=== PATIENT | male | born 1935 | race Caucasian/White ===

== ENCOUNTER 2017-10-15 18:16 | Inpatient (IN) ==
[2017-10-15] MEDS ORDERED: Isovue-370 500 ML INFUS..BTL IV ONE (18:23)
[2017-10-15] MEDS ORDERED: 0.9 % Sodium Chloride 1,000 ML IVC ONE (18:23)
[2017-10-15] MEDS ORDERED: Piperacillin/Tazobactam 3.375 GM in 0.9 % Sodium Chloride Mini Bag 100 ML IVPB ONE (18:42)
--- NOTE | 2017-10-15 18:47 | Emergency Department Note ---
START Narrative - START START: 82 year old male who recently had prostate surgery per Dr. Brasher on Monday secondary to BPH and now has a chronic indwelling leger catheter and family at bedside states that he has beeen declining in mental status and weakness and appears to be febrile. He has decreased appetite. Concern is for sepsis secondary to UTI, pneumonia, or PE. Noemí will have a sepsis workup to start and HCT for altered mental status. I haev started IVF and broad spectrum ABX ( zosyn) and pre-emptive efforts. Noemí appears drowsy at bedside but is pelon to answer questions and follows commands and awaken to voice. GCS 14. Noemí will require admission to the hospital today. I will sign noemí out to Dr. Stephen for further followup on CT scan and labs. EKG: sinus tachycardia with rate of 107. NO STEMI. LAE q waves present. normla itervals. no old ekg. [id number]
[2017-10-15 19:26] LABS: Basophils % 0.2 %; Eosinophils # 0.1 K/mcL (0.0-0.6); Eosinophils % 1.6 %; Hematocrit 37.6 % (37.5-50.1); Hemoglobin 12.2 g/dL (12.9-16.9); Immature Granulocytes % 0.3 % (0-4); Lymphocytes # 0.5 K/mcL (0.6-4.6); Lymphocytes % 5.3 %; Mean Corpuscular HGB Conc 32.4 g/dL (31.6-35.5); Mean Corpuscular Hemoglobin 28.7 pg (28.0-33.3); Mean Corpuscular Volume 88.5 fL (83.0-100.0); Mean Platelet Volume 9.6 fL (9.4-12.4); Monocytes # 0.9 K/mcL (0.0-1.3); Monocytes % 10.7 %; Neutrophils # 7.2 K/mcL (1.6-8.9); Platelet Count 204 K/mcL (140-400); Red Blood Count 4.25 M/mcL (4.19-5.50); Red Cell Distribution Width 13.5 % (11.5-14.5); Segmented Neutrophils % 81.9 %
[2017-10-15 19:36] LABS: INR 1.1; Prothrombin Time 11.6 Seconds (9.4-12.1)
[2017-10-15 19:39] LABS: Activated Partial Thrombo Time 30.8 Seconds (26.0-36.0)
[2017-10-15 19:46] LABS: Albumin 3.3 g/dL (3.5-5.7); Bilirubin,Direct 0.1 mg/dL (0.0-0.2); Bilirubin,Indirect 0.2 mg/dL (0.0-1.2); Bilirubin,Total 0.3 mg/dL (0.3-1.0); Calcium 9.2 mg/dL (8.6-10.3); Globulin 3.3 g/dL (2.4-3.5); Magnesium 2.2 mg/dL (1.6-2.6); Phosphorous 3.9 mg/dL (2.7-4.5); Potassium 4.8 mEq/L (3.5-5.1); Total Protein 6.6 g/dL (6.4-8.9)
[2017-10-15 19:50] LABS: Bilirubin,Urine Negative (Negative); Blood,Urine Large (Negative); Clarity,Urine Cloudy (Clear); Color,Urine Yellow (Yellow); Glucose,Urine (UA) Normal (Normal); Ketones,Urine Negative (Negative); Leukocyte Esterase,Urine Trace (Negative); Nitrite,Urine Negative (Negative); Protein,Urine 100 mg/dL (Neg-Trace); Specific Gravity,Urine 1.017 (1.010-1.025); Urobilinogen,Urine Normal (Normal)
[2017-10-15 19:50] LABS: Troponin I 0.08 ng/mL (< 0.04)
[2017-10-15 19:52] LABS: Bacteria,Urine None Seen per hpf (None-Few); Hyaline Casts,Urine None Seen per lpf (None-Few); RBC,Urine TNTC per hpf (0-3); Squamous Epithelial Cell,Urine Many per lpf (None-Few)
[2017-10-15 20:09] LABS: VBG HCO3 22 mEq/L (21-27); VBG PCO2 40 mmHg (41-51); VBG PH 7.34 pH Units (7.32-7.42); VBG PO2 85 mmHg (25-50)
--- NOTE | 2017-10-15 20:54 | Emergency Department Note ---
Disposition Clinical Impression: Generalized weakness, Elevated troponin Chronic renal disease Qualifiers: Chronic kidney disease stage: unspecified stage Qualified Code(s): N18.9 - Chronic kidney disease, unspecified Pneumonia Qualifiers: Pneumonia type: aspiration pneumonia Aspiration pneumonia type: unspecified Laterality: bilateral Lung location: unspecified part of lung Qualified Code(s) : J69.0 - Pneumonitis due to inhalation of food and vomit Disposition: Admitted As Inpatient Condition: Fair Referrals: Abraham Desai DO [Primary Care Provider] - Forms: ED Satisfaction Letter Time of Disposition: 21:29 Altered Mental Status HPI - General Chief Complaint: ED Altered Mental Status Stated Complaint: AMS Time Seen by Provider: 10/15/17 18:21 Source: patient, family Limitations: altered mental status (somnolence) Nursing Notes Reviewed: Yes Vital Signs Reviewed: Yes - History of Present Illness HPI Narrative: This is an 82 year-old male with history of chronic lung disease, BPH 5 days s/ p laser ablation procedure by Dr. Brasher. He presents with AMS described as excessive somnolence, gradually worsening since the procedure, along with generalized weakness and poor appetite. PAtient reports "pain all over" but denies any focal pain complaints, incuding headache, chest pain, and abdominal pain. He has had an indwelling catheter since the procedure; UOP has been normal and has changed from blood-tinged to normal yellow. Patient has had no measured fevers. He reports cough and dyspnea, both of which sound chronic in nature and unchanged. MD complaint: altered mental status Onset (ago): day(s) Timing confirmed by: family member Consistency of Symptoms: getting worse Associated symptoms: Reports: cough, loss of appetite, malaise, shortness of breath, weakness (generalized). Denies: fever, headaches, nausea/vomiting, syncope - Related Data Home Medications Medication Instructions Recorded Confirmed Buspirone HCl [Buspar] 10 mg PO BID 10/10/17 10/10/17 Colchicine [Colcrys] 0.6 mg PO DAILY 10/10/17 10/10/17 Donepezil [Aricept] 5 mg PO HS 10/10/17 10/10/17 Ipratropium [place] 2 spr NS DAILY 10/10/17 10/10/17 Omeprazole [PriLOSEC] 20 mg PO DAILY 10/10/17 10/10/17 Theophylline Anhydrous [Rodrigo-24] 400 mg PO DAILY 10/10/17 10/10/17 Trazodone HCl 50 mg PO HS 10/10/17 10/10/17 Previous Rx's Medication Instructions Recorded HYDROcodone/Acet 5/325 mg [[place] 1 tab PO Q4HR PRN 5 Days #10 tablet 10/11/17 5-325 mg] Allergies Allergy/AdvReac Type Severity Reaction Status Date / Time theophylline AdvReac See Verified 10/10/17 08:39 Comments All systems ED: reviewed and negative except as stated. Constitutional: Reports: weakness (generalized). Denies: fever Cardiovascular: Denies: chest pain Respiratory: Reports: cough (chronic, unchanged), dyspnea (chronic, unchanged) Gastrointestinal: Denies: abdominal pain Neurological: Denies: headache Past Medical History - Past Medical History Medical history: Reports: GERD, hypertension, renal disease Psychiatric history: Reports: anxiety - Social History Smoking Status: Never smoker Smokeless Tobacco Status: No Alcohol use: Reports: none Drug use: Reports: none Physical Exam - General Limitations: altered mental status (somnolent; anwers simple questions appropriately) General appearance: alert, in no apparent distress - Head Head exam: atraumatic, normocephalic - Eye Eye exam: Present: normal appearance - ENT ENT exam: normal exam - Neck Neck exam: Present: normal inspection. Absent: meningismus - Respiratory Respiratory exam: Present: normal lung sounds bilaterally. Absent: respiratory distress - Cardiovascular Cardiovascular exam: Present: regular rate, normal rhythm, normal heart sounds - Abdominal Exam Abdominal exam: Present: soft, Non-Tender. Absent: distention, guarding, rebound, rigidity - Extremities Exam Extremities exam: Present: normal inspection. Absent: tenderness, pedal edema - Neurological Exam Neurological exam: Present: other (somnolent, Ox2) - Skin Skin exam: Present: warm, dry, intact Course - Reevaluation(s) Reevaluation #1: Patient remains stable. Updated patient and family on test results, plans for admission. Time: 21:31 - Consultations Consultation #1: Reviewed case with Dr. Joya, and patient accepted for admission. Time: 21:39 Vital Signs Temperature 98.3 F 10/15/17 18:17 Pulse Rate 122 10/15/17 18:17 Respiratory Rate 16 10/15/17 18:17 Blood Pressure 103/67 10/15/17 18:17 O2 Sat by Pulse Oximetry 92 10/15/17 18:17 Temperature 98.3 F 10/15/17 18:22 Pulse Rate 93 10/15/17 20:58 Respiratory Rate 18 10/15/17 20:58 Blood Pressure 112/67 10/15/17 20:58 O2 Sat by Pulse Oximetry 93 10/15/17 20:58 Oxygen Delivery Oxygen Delivery Room Air Altered Mental Status - Lab Data Lab results reviewed: Yes I reviewed the patient's lab results. Lab results narrative: UA dirty, as expected with indwelling catheter; UA not highly suggestive of infection. Result diagrams: 10/15/17 18:23 10/15/17 18:23 Lab Results 10/15/17 10/15/17 10/15/17 Range/Units 18:23 18:23 18:23 WBC 8.7 (4.3-11.1) K/mcL RBC 4.25 (4.19-5.50) M/mcL Hgb 12.2 L (12.9-16.9) g/dL Hct 37.6 (37.5-50.1) % MCV 88.5 (83.0-100.0) fL MCH 28.7 (28.0-33.3) pg MCHC 32.4 (31.6-35.5) g/dL RDW 13.5 (11.5-14.5) % Plt Count 204 (140-400) K/mcL MPV 9.6 (9.4-12.4) fL Immature Gran % 0.3 (0-4) % Seg Neutrophils % 81.9 % Lymphocytes % 5.3 % Monocytes % 10.7 % Eosinophils % 1.6 % Basophils % 0.2 % Neutrophils # 7.2 (1.6-8.9) K/mcL Lymphocytes # 0.5 L (0.6-4.6) K/mcL Monocytes # 0.9 (0.0-1.3) K/mcL Eosinophils # 0.1 (0.0-0.6) K/mcL Basophils # 0.0 (0.0-0.2) K/mcL PT 11.6 (9.4-12.1) Seconds INR 1.1 APTT 30.8 (26.0-36.0) Seconds VBG pH (7.32-7.42) pH Units VBG pCO2 (41-51) mmHg VBG pO2 (25-50) mmHg VBG HCO3 (21-27) mEq/L Sodium 140 (136-145) mEq/L Potassium 4.8 (3.5-5.1) mEq/L Chloride 105 (98-107) mEq/L Carbon Dioxide 24 (23-29) mEq/L BUN 46 H (8-23) mg/dL Creatinine 2.71 H (0.70-1.30) mg/dL Est GFR ( Amer) 27 L (> 60) Est GFR (Non-Af Amer) 23 L (> 60) BUN/Creatinine Ratio 17 (6-26) Glucose 121 H (70-105) mg/dL Calculated Osmolality 303 H (280-300) Lactic Acid (0.5-2.2) mmol/L Calcium 9.2 (8.6-10.3) mg/dL Phosphorus 3.9 (2.7-4.5) mg/dL Magnesium 2.2 (1.6-2.6) mg/dL Total Bilirubin 0.3 (0.3-1.0) mg/dL Direct Bilirubin 0.1 (0.0-0.2) mg/dL Indirect Bilirubin 0.2 (0.0-1.2) mg/dL AST 11 L (13-39) Units/L ALT 9 (7-52) Units/L Alkaline Phosphatase 70 (34-104) Units/L Troponin I 0.08 H* (< 0.04) ng/mL B-Natriuretic Peptide (Less than 100) pg/mL Serum Total Protein 6.6 (6.4-8.9) g/dL Albumin 3.3 L (3.5-5.7) g/dL Globulin 3.3 (2.4-3.5) g/dL Albumin/Globulin Ratio 1.0 L (1.1-2.2) Lipase 18 (11-82) Units/L Urine Color (Yellow) Urine Clarity (Clear) Urine pH (5.0-8.0) pH Units Ur Specific [place] (1.010-1.025) Urine Protein (Neg-Trace) mg/dL Urine Glucose (UA) (Normal) mg/dL Urine Ketones (Negative) mg/dL Urine Blood (Negative) Urine Nitrite (Negative) Urine Bilirubin (Negative) Urine Urobilinogen (Normal) mg/dL Ur Leukocyte Esterase (Negative) Urine Microscopic RBC (0-3) per hpf Urine Microscopic WBC (0-3) per hpf Ur Squamous Epith Cells (None-Few) per lpf Urine Bacteria (None-Few) per hpf Hyaline Casts (None-Few) per lpf Ur Culture Indicated? (NO) 10/15/17 10/15/17 10/15/17 Range/Units 18:23 19:00 19:27 WBC (4.3-11.1) K/mcL RBC (4.19-5.50) M/mcL Hgb (12.9-16.9) g/dL Hct (37.5-50.1) % MCV (83.0-100.0) fL MCH (28.0-33.3) pg MCHC (31.6-35.5) g/dL RDW (11.5-14.5) % Plt Count (140-400) K/mcL MPV (9.4-12.4) fL Immature Gran % (0-4) % Seg Neutrophils % % Lymphocytes % % Monocytes % % Eosinophils % % Basophils % % Neutrophils # (1.6-8.9) K/mcL Lymphocytes # (0.6-4.6) K/mcL Monocytes # (0.0-1.3) K/mcL Eosinophils # (0.0-0.6) K/mcL Basophils # (0.0-0.2) K/mcL PT (9.4-12.1) Seconds INR APTT (26.0-36.0) Seconds VBG pH (7.32-7.42) pH Units VBG pCO2 (41-51) mmHg VBG pO2 (25-50) mmHg VBG HCO3 (21-27) mEq/L Sodium (136-145) mEq/L Potassium (3.5-5.1) mEq/L Chloride (98-107) mEq/L Carbon Dioxide (23-29) mEq/L BUN (8-23) mg/dL Creatinine (0.70-1.30) mg/dL Est GFR ( Amer) (> 60) Est GFR (Non-Af Amer) (> 60) BUN/Creatinine Ratio (6-26) Glucose (70-105) mg/dL Calculated Osmolality (280-300) Lactic Acid 1.2 (0.5-2.2) mmol/L Calcium (8.6-10.3) mg/dL Phosphorus (2.7-4.5) mg/dL Magnesium (1.6-2.6) mg/dL Total Bilirubin (0.3-1.0) mg/dL Direct Bilirubin (0.0-0.2) mg/dL Indirect Bilirubin (0.0-1.2) mg/dL AST (13-39) Units/L ALT (7-52) Units/L Alkaline Phosphatase (34-104) Units/L Troponin I (< 0.04) ng/mL B-Natriuretic Peptide 73 (Less than 100) pg/mL Serum Total Protein (6.4-8.9) g/dL Albumin (3.5-5.7) g/dL Globulin (2.4-3.5) g/dL Albumin/Globulin Ratio (1.1-2.2) Lipase (11-82) Units/L Urine Color Yellow (Yellow) Urine Clarity Cloudy A (Clear) Urine pH 6.0 (5.0-8.0) pH Units Ur Specific [place] 1.017 (1.010-1.025) Urine Protein 100 H (Neg-Trace) mg/dL Urine Glucose (UA) Normal (Normal) mg/dL Urine Ketones Negative (Negative) mg/dL Urine Blood Large H (Negative) Urine Nitrite Negative (Negative) Urine Bilirubin Negative (Negative) Urine Urobilinogen Normal (Normal) mg/dL Ur Leukocyte Esterase Trace H (Negative) Urine Microscopic RBC TNTC H (0-3) per hpf Urine Microscopic WBC 5-15 H (0-3) per hpf Ur Squamous Epith Cells Many H (None-Few) per lpf Urine Bacteria None Seen (None-Few) per hpf Hyaline Casts None Seen (None-Few) per lpf Ur Culture Indicated? NO. A (NO) 10/15/17 Range/Units 20:05 WBC (4.3-11.1) K/mcL RBC (4.19-5.50) M/mcL Hgb (12.9-16.9) g/dL Hct (37.5-50.1) % MCV (83.0-100.0) fL MCH (28.0-33.3) pg MCHC (31.6-35.5) g/dL RDW (11.5-14.5) % Plt Count (140-400) K/mcL MPV (9.4-12.4) fL Immature Gran % (0-4) % Seg Neutrophils % % Lymphocytes % % Monocytes % % Eosinophils % % Basophils % % Neutrophils # (1.6-8.9) K/mcL Lymphocytes # (0.6-4.6) K/mcL Monocytes # (0.0-1.3) K/mcL Eosinophils # (0.0-0.6) K/mcL Basophils # (0.0-0.2) K/mcL PT (9.4-12.1) Seconds INR APTT (26.0-36.0) Seconds VBG pH 7.34 (7.32-7.42) pH Units VBG pCO2 40 L (41-51) mmHg VBG pO2 85 H (25-50) mmHg VBG HCO3 22 (21-27) mEq/L Sodium (136-145) mEq/L Potassium (3.5-5.1) mEq/L Chloride (98-107) mEq/L Carbon Dioxide (23-29) mEq/L BUN (8-23) mg/dL Creatinine (0.70-1.30) mg/dL Est GFR ( Amer) (> 60) Est GFR (Non-Af Amer) (> 60) BUN/Creatinine Ratio (6-26) Glucose (70-105) mg/dL Calculated Osmolality (280-300) Lactic Acid (0.5-2.2) mmol/L Calcium (8.6-10.3) mg/dL Phosphorus (2.7-4.5) mg/dL Magnesium (1.6-2.6) mg/dL Total Bilirubin (0.3-1.0) mg/dL Direct Bilirubin (0.0-0.2) mg/dL Indirect Bilirubin (0.0-1.2) mg/dL AST (13-39) Units/L ALT (7-52) Units/L Alkaline Phosphatase (34-104) Units/L Troponin I (< 0.04) ng/mL B-Natriuretic Peptide (Less than 100) pg/mL Serum Total Protein (6.4-8.9) g/dL Albumin (3.5-5.7) g/dL Globulin (2.4-3.5) g/dL Albumin/Globulin Ratio (1.1-2.2) Lipase (11-82) Units/L Urine Color (Yellow) Urine Clarity (Clear) Urine pH (5.0-8.0) pH Units Ur Specific [place] (1.010-1.025) Urine Protein (Neg-Trace) mg/dL Urine Glucose (UA) (Normal) mg/dL Urine Ketones (Negative) mg/dL Urine Blood (Negative) Urine Nitrite (Negative) Urine Bilirubin (Negative) Urine Urobilinogen (Normal) mg/dL Ur Leukocyte Esterase (Negative) Urine Microscopic RBC (0-3) per hpf Urine Microscopic WBC (0-3) per hpf Ur Squamous Epith Cells (None-Few) per lpf Urine Bacteria (None-Few) per hpf Hyaline Casts (None-Few) per lpf Ur Culture Indicated? (NO) - Radiology Data Radiology results reviewed: Yes I reviewed the patient's radiology results. CT/CT head/brain wo con IMPRESSION: No acute intracranial abnormality. CT/CT chest wo con IMPRESSION: 1. Multifocal pneumonia in the bilateral lower lungs. Aspiration is likely given the presence of mucus plugging in the bilateral lower lobe bronchi, and likely chronic atelectasis/collapse of the left lower lobe. 2. No acute abnormality in the abdomen/pelvis. 3. Prostatomegaly, with interval Richter catheter placement and bladder decompression. CT/CT abd pelvis wo no iv no oral IMPRESSION: 1. Multifocal pneumonia in the bilateral lower lungs. Aspiration is likely given the presence of mucus plugging in the bilateral lower lobe bronchi, and likely chronic atelectasis/collapse of the left lower lobe. 2. No acute abnormality in the abdomen/pelvis. 3. Prostatomegaly, with interval Richter catheter placement and bladder decompression. - EKG Data EKG attestation: Yes I reviewed and interpreted this EKG. EKG results narrative: Sinus tach EKG shows normal: axis Rate: tachycardia When compared to previous EKG there are: no significant changes Interpretation: no acute changes TPA Checklist - LKW: 3-4.5 hrs Add. Warnings/Precautions Patient/family understanding: The patient/family members have been counseled and understood the risk, benefit , and alternatives of treatment.
[2017-10-15] MEDS ORDERED: Clindamycin 900 MG/50 ML 900 MG/50 ML IV.SOLN IVPB ONE (21:28)
--- NOTE | 2017-10-15 21:56 | Internal Med History&Physical ---
Date of Encounter: 10/15/17 Time of Encounter: 21:56 Internal Medicine - H&P: HPI Chief complaint: "not acting normal" Admitted From: Home Plans for Post Hospital Care: Home History of present illness: Mr. Smith is a 82 year old male w/ pmh of CKD4, gout, htn, dementia, s/p prostatactomy 5 days ago with leger cath presents after family witnessed patient not acting normal. Patient is seen bedside with son and daughter in law. Family is unable to describe how he was acting but that he was just not normal. Patient states that he's not in any pain, does not feel confused. He denies chest pain, shortness of breath, edema, recent trauma, fever, chills. Son has not had goals of care conversation with patient. claims that she is PoA and that she has paperwork and will bring paperwork in tomorrow. Past Med Surg Social Fam HX - Past Medical History Medical history: GERD, hypertension, renal disease Psychiatric history: anxiety - Past Surgical History Additional surgical history: prostate surgery. lung surgery - Social History Smoking Status: Never smoker Smokeless Tobacco Status: No Alcohol use: none Drug use: none Internal Medicine - H&P: Meds Buspirone HCl [Buspar] 10 mg PO BID 10/10/17 [History] Colchicine [Colcrys] 0.6 mg PO DAILY 10/10/17 [History] Donepezil [Aricept] 5 mg PO HS 10/10/17 [History] Ipratropium [place] 2 spr NS DAILY 10/10/17 [History] Omeprazole [PriLOSEC] 20 mg PO DAILY 10/10/17 [History] Theophylline Anhydrous [Rodrigo-24] 400 mg PO DAILY 10/10/17 [History] Trazodone HCl 50 mg PO HS 10/10/17 [History] HYDROcodone/Acet 5/325 mg [[place] 5-325 mg] 1 tab PO Q4HR PRN 5 Days #10 tablet 10/11/17 [Rx] 3 Allergy/AdvReac Type Severity Reaction Status Date / Time theophylline AdvReac See Verified 10/10/17 08:39 Comments ROS unobtainable: due to mental status All Systems PM: A 10-system review of systems was performed and is negative for pertinent findings except as documented above in the HPI. - Constitutional Vitals: Temp Pulse Resp BP Pulse Ox 98.3 F 93 18 112/67 93 10/15/17 18:22 10/15/17 20:58 10/15/17 20:58 10/15/17 20:58 10/15/17 20:58 General appearance: Present: cachectic, cooperative, A&O X 1, underweight - Head Head exam: Present: atraumatic, normocephalic - Eye Eye exam: Present: PERRL, conjuntiva pink, sclera anicteric Pupils: Present: PERRL - Neck Neck exam general surgery: Present: supple, trachea midline. Absent: lymphadenopathy - Respiratory Respiratory exam: Present: CTAB. Absent: accessory muscle use, rales, rhonchi, wheezes - Cardiovascular Cardiovascular exam: Present: RRR, +S1, +S2. Absent: diastolic murmur, gallop, rubs, systolic murmur - GI/Abdominal GI/Abdominal exam: Present: normal bowel sounds, soft, no peritoneal signs. Absent: distended, firm, guarding, hepatomegaly, rebound, rigid, tenderness - Extremities Exam Extremities exam: Present: warm, radial pulses palpable and symmetrical. Absent : calf tenderness, cyanotic, pedal edema - Neurological Exam Neurological exam: Present: alert, no focal deficits. Absent: pronater drift, facial droop, speech deficit - Skin Skin exam: Present: dry, intact Internal Med - H&P Results - Labs CBC & Chem 7: 10/15/17 18:23 10/15/17 18:23 Labs: Short CBC 10/15/17 Range/Units 18:23 WBC 8.7 (4.3-11.1) K/mcL Hgb 12.2 L (12.9-16.9) g/dL Hct 37.6 (37.5-50.1) % Plt Count 204 (140-400) K/mcL Neutrophils # 7.2 (1.6-8.9) K/mcL BMP 10/15/17 18:23 Sodium 140 Potassium 4.8 Chloride 105 Carbon Dioxide 24 BUN 46 H Creatinine 2.71 H Glucose 121 H Calcium 9.2 Cardiac Enzymes 10/15/17 Range/Units 18:23 Troponin I 0.08 H* (< 0.04) ng/mL Liver Function 10/15/17 Range/Units 18:23 Total Bilirubin 0.3 (0.3-1.0) mg/dL Direct Bilirubin 0.1 (0.0-0.2) mg/dL AST 11 L (13-39) Units/L ALT 9 (7-52) Units/L Alkaline Phosphatase 70 (34-104) Units/L Albumin 3.3 L (3.5-5.7) g/dL Urine 10/15/17 Range/Units 19:27 Urine Color Yellow (Yellow) Urine Clarity Cloudy A (Clear) Urine pH 6.0 (5.0-8.0) pH Units Ur Specific [place] 1.017 (1.010-1.025) Urine Protein 100 H (Neg-Trace) mg/dL Urine Glucose (UA) Normal (Normal) mg/dL - ABG Interpretation ABG results: 10/15/17 20:05 VBG pH 7.34 VBG pCO2 40 L VBG pO2 85 H VBG HCO3 22 - Impressions ITS Impressions Abdomen/Pelvis CT 10/15/17 18:23 IMPRESSION: 1. Multifocal pneumonia in the bilateral lower lungs. Aspiration is likely given the presence of mucus plugging in the bilateral lower lobe bronchi, and likely chronic atelectasis/collapse of the left lower lobe. 2. No acute abnormality in the abdomen/pelvis. 3. Prostatomegaly, with interval Leger catheter placement and bladder decompression. D/ / 10/15/2017 21:19:35 Luigi Nagy MD / alberto Interpreting Provider: Luigi Nagy MD Chest CT 10/15/17 18:23 IMPRESSION: 1. Multifocal pneumonia in the bilateral lower lungs. Aspiration is likely given the presence of mucus plugging in the bilateral lower lobe bronchi, and likely chronic atelectasis/collapse of the left lower lobe. 2. No acute abnormality in the abdomen/pelvis. 3. Prostatomegaly, with interval Leger catheter placement and bladder decompression. D/ / 10/15/2017 21:19:35 Luigi Nagy MD / alberto Interpreting Provider: Luigi Nagy MD Head CT 10/15/17 18:42 IMPRESSION: No acute intracranial abnormality. D/ / Ricco Church MD / Ricco Church MD Interpreting Provider: Ricco Church MD - Assessment and plan (1) Not oriented to time Current Visit: Yes Status: Acute Assessment and plan: Patient was admitted for PNA, UTI and r/o PE. Patient's A+Ox1 most likely due to post surgery prescription of norco usage vs dehydration vs dementia vs less likely due to PNA vs possible UTI vs r/o PE. Patient received prescription for norco on monday, and had taken more frequent today due to general pain today. Will hold mental altering medications. Will gently rehydrate. Will continue abx for PNA. less likely surgically related due to time frame. No WBC and afebrile. no symptoms of PNA. CT ,chest read as multifocal pneumonia in bilateral lower lungs, aspiration likely. U/A was negative for nitrite and trace Leuks with many squamous epithelial cells. Will hold off on treating for UTI currently. will need leger cath management. ED had PE on differential, no PE workup was performed in the ED. Patient was tachycardic on admission but currently in SR. WELL's criteria is 1.5 for recent surgery, patient is low risk. - continue IVF, encourage PO fluids - hold norco - empirically treat for aspiration pneumonia with ampicillin/sulbactam (2) CKD (chronic kidney disease) Current Visit: Yes Status: Acute Assessment and plan: known hx of CKD3. Cr on admission 2.71, baseline ~2.5. - Renal diet - follow Cr. Qualifiers: Qualified Code(s): N18.3 - Chronic kidney disease, stage 3 (moderate) (3) Status post prostatectomy Current Visit: Yes Status: Acute Assessment and plan: Procedure performed last monday. Consider contacting Urology (4) Pneumonia Current Visit: Yes Status: Acute Assessment and plan: see above Qualifiers: Pneumonia type: aspiration pneumonia Aspiration pneumonia type: unspecified Laterality: bilateral Lung location: unspecified part of lung Qualified Code(s): J69.0 - Pneumonitis due to inhalation of food and vomit - Time Spent With Patient Total time spent is greater than 50% in coordination of care (as documented) at patient's floor/unit and/or counseling patient:
[2017-10-15] MEDS ORDERED: Naloxone 0.4 MG/ML INJ IVP PRN (22:28)
--- NOTE | 2017-10-15 22:40 | Event Note ---
Date of Encounter: 10/16/17 Time of Encounter: 22:28 Patient was seen and examined. I agree with the H&P as written by the Resident Physician. Briefly, patient is 82 yo m with recent BPH laser ablation 10/[address] Brasher, HTN, CKD here with AMS/weakness/excessive somnolence since the procedure. Has decreased appetite. In the ED, hemodynamcially stable but initially tachycardic. CT head unremarkable. CT chest showed multifocal pneumonia in the bilateral lower lungs with mucus plugging the bilateral lower lobe rhonchi. Patient stats in low 90s and put on supplemental O2. Give abx and IVF in the ED. labs showed CKD. Tops .08. No leukocytosis. EKG with no ischemic findings Lethargic patient RRR. S1, S2, no m/r/g Dimished with rhonchi at bases abdomen soft, NT, ND, +BS No edema. 2+ DP Nonfocal Admit for encephalopathy/aspiration pneumonia Treat aspiration pneumonia likely s/p anesthesia Start Unasyn check sputum/urine strep and legionella IV fluids Incentive spirometry c/s pulm for mucus plugs Trend cardiac enzymes DVT ppx
[2017-10-15] MEDS ORDERED: Ampicillin/Sulbactam 1,500 MG in 0.9 % Sodium Chloride Mini Bag 100 ML IVPB SCH (23:00)
[2017-10-15] MEDS ORDERED: 0.9 % Sodium Chloride 1,000 ML ONE (23:20)
[2017-10-15] MEDS: 0.9 % Sodium Chloride 1,000 ML IVC SCH (23:50)
[2017-10-16] MEDS: *HR* Heparin 5,000 UNIT/ML VIAL SQ SCH ×3 (06:08→21:13)
[2017-10-16 07:20] LABS: Basophils % 0.4 %; Eosinophils # 0.2 K/mcL (0.0-0.6); Eosinophils % 2.4 %; Hematocrit 32.9 % (37.5-50.1); Hemoglobin 10.9 g/dL (12.9-16.9); Immature Granulocytes % 0.4 % (0-4); Lymphocytes # 0.8 K/mcL (0.6-4.6); Lymphocytes % 10.8 %; Mean Corpuscular HGB Conc 33.1 g/dL (31.6-35.5); Mean Corpuscular Hemoglobin 29.8 pg (28.0-33.3); Mean Corpuscular Volume 89.9 fL (83.0-100.0); Mean Platelet Volume 9.5 fL (9.4-12.4); Monocytes # 0.9 K/mcL (0.0-1.3); Neutrophils # 5.5 K/mcL (1.6-8.9); Platelet Count 184 K/mcL (140-400); Red Blood Count 3.66 M/mcL (4.19-5.50); Red Cell Distribution Width 13.4 % (11.5-14.5)
[2017-10-16 07:41] LABS: Calcium 8.4 mg/dL (8.6-10.3); Potassium 4.7 mEq/L (3.5-5.1)
[2017-10-16] MEDS: Colchicine 0.6 MG TABLET PO SCH (10:08)
--- NOTE | 2017-10-16 10:24 | Internal Med Progress Note ---
Date of Encounter: 10/16/17 Time of Encounter: 10:22 - Assessment and plan (1) Metabolic encephalopathy Current Visit: Yes Status: Acute Assessment and plan: Patient was presented with metabolic encephalopathy from home. Possible potential etiologies are urinary tract infection as well as a developing pneumonia. He is not hypoxic at this point and urine cultures and blood cultures are pending at this time. He is on empiric Unasyn. He does have acute on chronic renal failure which could be contributory to his metabolic encephalopathy and a third possibility etiology. Today he looks a little bit better and I will closely monitor him for mental status loom changer the next several hours. (2) Troponin level elevated Current Visit: Yes Status: Acute Assessment and plan: Patient does not have any chest pain and this point. His troponins are mildly elevated at 0.08 and 0.09 respectively. He does not have any shortness of breath and the daughter is not aware of any heart failure diagnoses that he has had in the past. I did an EKG and does not show any acute ST elevation or depression. I will continue to place him on telemetry which by the way has not shown any evidence of ischemia. Hence the most likely elevation of his troponin could be related to his acute on chronic renal failure . I do not believe I would get cardiology consultation at this point however I will check an echo just to look at his baseline heart function and go from there. He appears very comfortable and denies any chest pain whatsoever at this point (3) Pneumonia Current Visit: Yes Status: Acute Assessment and plan: We are ruling out an aspiration versus a healthcare acquired pneumonia at this point. Patient did have some mucous plugging and would more benefit from an incentive spirometry at this point. He is not hypoxic and maintaining saturations of 93% on room air. He looks very comfortable and is not short of breath at this point. I have asked the nurses to check a bedside swallowing evaluation and if there is a concern we will do a full speech and swallow evaluation. Regardless I will continue Unasyn until cultures are resulted just for completion sake. I will also encourage incentive spirometry at the bedside at least once every hour Qualifiers: Pneumonia type: aspiration pneumonia Aspiration pneumonia type: unspecified Laterality: bilateral Lung location: unspecified part of lung Qualified Code(s): J69.0 - Pneumonitis due to inhalation of food and vomit (4) CKD (chronic kidney disease) Current Visit: Yes Status: Acute Assessment and plan: Acute and chronic renal failure with a baseline stage III chronic kidney disease. At this point I would give him gentle hydration for another 24 hours and then stop the IV fluids because I do not want him to get overloaded. His CK D could also have been worsened because of his underlying benign prostatic hypertrophy for which he recently had a prostate surgery. His urine in the Richter bag as well as the tubing looks very clear I have consulted urology for follow-up will be in to see the patient today. A new Richter catheter inside and await urine cultures as well... Qualifiers: Qualified Code(s): N18.3 - Chronic kidney disease, stage 3 (moderate) (5) Status post prostatectomy Current Visit: Yes Status: Acute Assessment and plan: Procedure performed last monday. Consult placed to neurology for postoperative care at this point. - Time Spent With Patient Total time spent is greater than 50% in coordination of care (as documented) at patient's floor/unit and/or counseling patient: Greater than 35 minutes - Subjective Interval history: Patient denies any new shortness of breath, chest pain. Patient's family at the bedside (daughter ) and provides most of the history. Patient reasonably answers questions as well. He states that here she feels better as compared to yesterday - Constitutional Vitals: Temp Pulse Resp BP Pulse Ox 98.9 F 84 18 122/77 94 10/16/17 06:55 10/16/17 06:55 10/16/17 06:55 10/16/17 06:55 10/16/17 06:55 General appearance: Present: cachectic, cooperative, A&O X 1, underweight Exam: GENERAL: Alert, moderate distress, cooperative, a and O 1 EYES: PERRLA, EOMI EARS: External ears normal, canals clear LUNGS: Lungs decreased breath sounds at the bases, impaired diaphragmatic excursion CARDIAC: Normal S1 and S2; no rubs, murmurs, or gallops ABDOMEN: Abdomen soft, non-tender, BS normal, No masses or organomegaly PULSES: 2+ radial, 2+ carotid Rest of the exam is non contributory Internal Medicine: Result - Labs CBC & Chem 7: 10/16/17 07:04 10/16/17 07:04 Labs: Short CBC 10/16/17 Range/Units 07:04 WBC 7.4 (4.3-11.1) K/mcL Hgb 10.9 L (12.9-16.9) g/dL Hct 32.9 L (37.5-50.1) % Plt Count 184 (140-400) K/mcL Neutrophils # 5.5 (1.6-8.9) K/mcL BMP 10/16/17 07:04 Sodium 141 Potassium 4.7 Chloride 112 H Carbon Dioxide 22 L BUN 43 H Creatinine 2.37 H Glucose 89 Calcium 8.4 L Cardiac Enzymes 10/16/17 10/16/17 Range/Units 01:49 07:04 Troponin I 0.09 H* 0.09 H* (< 0.04) ng/mL - ABG Interpretation ABG results: PT/INR, D-dimer PT 11.6 Seconds (9.4-12.1) 10/15/17 18:23 Consult Discharge Plan - Plan Referrals: Abraham Desai DO [Primary Care Provider] -
--- NOTE | 2017-10-16 10:34 | Pulmonology Consult Note ---
<ScottClaydavid M - Last Filed: 10/16/17 12:14> Date of Encounter: 10/16/17 Medications and Allergies Buspirone HCl [Buspar] 10 mg PO BID 10/10/17 [History] Colchicine [Colcrys] 0.6 mg PO DAILY 10/10/17 [History] Donepezil [Aricept] 5 mg PO HS 10/10/17 [History] Ipratropium [place] 2 spr NS DAILY 10/10/17 [History] Omeprazole [PriLOSEC] 20 mg PO DAILY 10/10/17 [History] Theophylline Anhydrous [Rodrigo-24] 200 mg PO BID 10/10/17 [History] Trazodone HCl 50 mg PO HS 10/10/17 [History] HYDROcodone/Acet 5/325 mg [[place] 5-325 mg] 1 tab PO Q4HR PRN 5 Days #10 tablet 10/11/17 [Rx] 3 Allergy/AdvReac Type Severity Reaction Status Date / Time theophylline AdvReac See Verified 10/10/17 08:39 Comments All Systems: The remainder of the systems were reviewed and are negative Physical Examination Vital Signs: Vital Signs, Last 4 Hours Temp Pulse Resp BP Pulse Ox 10/16/17 11:42 98.2 F 77 14 124/71 95 Results - Laboratory Findings CBC and BMP: 10/16/17 07:04 10/16/17 07:04 PT/INR, D-dimer PT 11.6 Seconds (9.4-12.1) 10/15/17 18:23 Abnormal lab findings: Abnormal lab results RBC 3.66 M/mcL (4.19-5.50) L 10/16/17 07:04 Hgb 10.9 g/dL (12.9-16.9) L 10/16/17 07:04 Hct 32.9 % (37.5-50.1) L 10/16/17 07:04 VBG pCO2 40 mmHg (41-51) L 10/15/17 20:05 VBG pO2 85 mmHg (25-50) H 10/15/17 20:05 Chloride 112 mEq/L (98-107) H 10/16/17 07:04 Carbon Dioxide 22 mEq/L (23-29) L 10/16/17 07:04 BUN 43 mg/dL (8-23) H 10/16/17 07:04 Creatinine 2.37 mg/dL (0.70-1.30) H 10/16/17 07:04 Est GFR ( Amer) 32 (> 60) L 10/16/17 07:04 Est GFR (Non-Af Amer) 26 (> 60) L 10/16/17 07:04 Calculated Osmolality 302 (280-300) H 10/16/17 07:04 Calcium 8.4 mg/dL (8.6-10.3) L 10/16/17 07:04 AST 11 Units/L (13-39) L 10/15/17 18:23 Troponin I 0.09 ng/mL (< 0.04) H* 10/16/17 07:04 Albumin 3.3 g/dL (3.5-5.7) L 10/15/17 18:23 Albumin/Globulin Ratio 1.0 (1.1-2.2) L 10/15/17 18:23 Urine Clarity Cloudy (Clear) A 10/15/17 19:27 Urine Protein 100 mg/dL (Neg-Trace) H 10/15/17 19:27 Urine Blood Large (Negative) H 10/15/17 19:27 Ur Leukocyte Esterase Trace (Negative) H 10/15/17 19:27 Urine Microscopic RBC TNTC per hpf (0-3) H 10/15/17 19:27 Urine Microscopic WBC 5-15 per hpf (0-3) H 10/15/17 19:27 Ur Squamous Epith Cells Many per lpf (None-Few) H 10/15/17 19:27 Ur Culture Indicated? NO. (NO) A 10/15/17 19:27 - Clinical Findings Intake & Output: Intake & Output 10/15/17 10/16/17 10/16/17 23:59 07:59 15:59 Intake Total 0 / 100 250 / 250 1150 / 1150 Output Total 0 / 0 150 / 150 Balance 0 / 100 100 / 100 1150 / 1150 Weight 37.7 kg 41.1 kg Consult Discharge Plan - Plan Referrals: Abraham Desai DO [Primary Care Provider] - - Attending Attestation I examined this patient and my medical decision-making was reviewed with the Resident Physician. I agree with the documented findings, disposition and treatment plan as described except to the extent set forth below. Patient seen and examined. Labs, radiology, chart personally reviewed. Agree with resident's history and physical, assessment, plan with following comments: MECHANICAL RESEARCH ENGINEER: Patient follows commands, Pulmonary: Acceptable oxygenation and ventilation. I have reviewed CT chest personally and there is no evidence of large mucous plugs for patient to bronchoscopy at this time and chest physical therapy with bronchodilators and evaluation for aspiration is recommended. Patient is not in any acute distress and not using accessory muscles and he is on room air. I suspect most of the changes are chronic in nature. If no improvement then invasive testing such as bronchoscopy will be considered. Cardiovascular: stable Thank you for consultation and please call for any questions. <Trudy Puente - Last Filed: 10/16/17 15:47> Date of Encounter: 10/16/17 Time of Encounter: 10:34 Assessment and Plan (1) Pneumonia Current Visit: Yes Status: Acute Aspiration vs HCAP. Mucus plugging in bilateral lower lobe bronchi on CT abdomen /pelvis. Normal respiratory effort, no conversational dyspnea, saturating 95% on room air. Recommend chest PT three times daily with bronchodilators, deep breathing, and incentive spirometry. Bronchoscopy not necessary at this time. Qualifiers: Pneumonia type: aspiration pneumonia Aspiration pneumonia type: unspecified Laterality: bilateral Lung location: unspecified part of lung Qualified Code(s): J69.0 - Pneumonitis due to inhalation of food and vomit History of Present Illness Consult date: 10/16/17 Requesting physician: Derrick Anderson Reason for consult: other (mucus plugs) History of present illness: Pulmonology consulted for mucus plugs. Seen and examined this morning at bedside. Pt resting in bed and breathing comfortably. He endorses no complaints. 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 lung surgery - Social History Smoking Status: Never smoker Smokeless Tobacco Status: No Alcohol use: none Drug use: none - Family History Mother Family Member Ethnicity: Non- Living Status: Cause of : Brain aneurysm Hx Family Neurologic Disorders: Yes (Brain aneurysm) All Systems: The remainder of the systems were reviewed and are negative - Constitutional Constitutional: no chills, no fever(s) - Cardiovascular Cardiovascular: no chest pain, no dyspnea - Respiratory Respiratory: as per HPI, cough, no dyspnea, no wheezing - Gastrointestinal Gastrointestinal: abdominal pain, no nausea, no vomiting Physical Examination Vital Signs: Vital Signs, Last 4 Hours Temp Pulse Resp BP Pulse Ox 10/16/17 06:55 98.9 F 84 18 122/77 94 General appearance: no acute distress, alert Eyes: nonicteric Effort: normal Inspection: normal Auscultation: bilateral: diminished breath sounds Cardiovascular: regular rate and rhythm Gastrointestinal: normoactive bowel sounds, soft, non-tender, non-distended Extremities: no cyanosis, no edema, pink and warm normal mental status (answers questions appropriately, cooperative with exam), non-focal exam, pupils equal and round, other (spontaneously moves all extremities) Results - Laboratory Findings CBC and BMP: 10/16/17 07:04 10/16/17 07:04 PT/INR, D-dimer PT 11.6 Seconds (9.4-12.1) 10/15/17 18:23 Abnormal lab findings: Abnormal lab results RBC 3.66 M/mcL (4.19-5.50) L 10/16/17 07:04 Hgb 10.9 g/dL (12.9-16.9) L 10/16/17 07:04 Hct 32.9 % (37.5-50.1) L 10/16/17 07:04 VBG pCO2 40 mmHg (41-51) L 10/15/17 20:05 VBG pO2 85 mmHg (25-50) H 10/15/17 20:05 Chloride 112 mEq/L (98-107) H 10/16/17 07:04 Carbon Dioxide 22 mEq/L (23-29) L 10/16/17 07:04 BUN 43 mg/dL (8-23) H 10/16/17 07:04 Creatinine 2.37 mg/dL (0.70-1.30) H 10/16/17 07:04 Est GFR ( Amer) 32 (> 60) L 10/16/17 07:04 Est GFR (Non-Af Amer) 26 (> 60) L 10/16/17 07:04 Calculated Osmolality 302 (280-300) H 10/16/17 07:04 Calcium 8.4 mg/dL (8.6-10.3) L 10/16/17 07:04 AST 11 Units/L (13-39) L 10/15/17 18:23 Troponin I 0.09 ng/mL (< 0.04) H* 10/16/17 07:04 Albumin 3.3 g/dL (3.5-5.7) L 10/15/17 18:23 Albumin/Globulin Ratio 1.0 (1.1-2.2) L 10/15/17 18:23 Urine Clarity Cloudy (Clear) A 10/15/17 19: Urine Protein 100 mg/dL (Neg-Trace) H 10/15/17 19:27 Urine Blood Large (Negative) H 10/15/17 19:27 Ur Leukocyte Esterase Trace (Negative) H 10/15/17 19:27 Urine Microscopic RBC TNTC per hpf (0-3) H 10/15/17 19:27 Urine Microscopic WBC 5-15 per hpf (0-3) H 10/15/17 19:27 Ur Squamous Epith Cells Many per lpf (None-Few) H 10/15/17 19:27 Ur Culture Indicated? NO. (NO) A 10/15/17 19:27 - Clinical Findings Intake & Output: Intake & Output 10/15/17 10/16/17 10/16/17 23:59 07:59 15:59 Intake Total 0 / 100 250 / 250 150 / 150 Output Total 0 / 0 150 / 150 Balance 0 / 100 100 / 100 150 / 150 Weight 37.7 kg
[2017-10-16] MEDS: IPRATROPIUM BROMIDE NS SCH (10:49)
[2017-10-16] MEDS: 0.9 % Sodium Chloride 1,000 ML IVC SCH (11:49)
--- NOTE | 2017-10-16 15:13 | Urology - Consult Note ---
Date of Encounter: 10/16/17 Time of Encounter: 15:10 - Assessment and Plan (1) BPH loc w urin obs/LUTS Current Visit: No Status: Resolved Assessment and plan: Patient would like to keep his catheter in place at this time. I am currently agreeable. We will continue to follow along closely while patient in hospital. Urology CN:HPI Consult date: 10/16/17 Reason for consult Urology: Other (recent urology surgery) Requesting physician: Derrick Anderson History of present illness: Evan is a 82-year-old male who recently underwent a greenlight states her to Dr. Brasher last week. Patient now admitted secondary to altered mental status. Patient was found on admission to have possible UTI as well as likely pneumonia. Patient's catheter draining well. 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 lung surgery - Social History Smoking Status: Never smoker Smokeless Tobacco Status: No Alcohol use: none Drug use: none - Family History Mother Family Member Ethnicity: Non- Living Status: Cause of : Brain aneurysm Hx Family Neurologic Disorders: Yes (Brain aneurysm) Medications and Allergies Buspirone HCl [Buspar] 10 mg PO BID 10/10/17 [History] Colchicine [Colcrys] 0.6 mg PO DAILY 10/10/17 [History] Donepezil [Aricept] 5 mg PO HS 10/10/17 [History] Ipratropium [place] 2 spr NS DAILY 10/10/17 [History] Omeprazole [PriLOSEC] 20 mg PO DAILY 10/10/17 [History] Theophylline Anhydrous [Rodrigo-24] 200 mg PO BID 10/10/17 [History] Trazodone HCl 50 mg PO HS 10/10/17 [History] HYDROcodone/Acet 5/325 mg [[place] 5-325 mg] 1 tab PO Q4HR PRN 5 Days #10 tablet 10/11/17 [Rx] 3 Allergy/AdvReac Type Severity Reaction Status Date / Time theophylline AdvReac See Verified 10/10/17 08:39 Comments Review of Systems - Constitutional no chills - EENT Nose, mouth and throat: no dizziness - Cardiovascular no chest pain - Respiratory no cough - Gastrointestinal no abdominal pain - Genitourinary as per HPI Exam Initial Vital Signs Temp Pulse Resp BP Pulse Ox 98.3 F 122 16 103/67 92 10/15/17 18:17 10/15/17 18:17 10/15/17 18:17 10/15/17 18:17 10/15/17 18:17 General/Neuological: alert and oriented x 3 Eyes: normal pupils, non-icteric Neck: no lymphadenopathy noted, supple to touch ABD: soft, nontender, no masses palpated, good bowel sounds Back: no pain on percussion bilaterally : Catheter draining clear urine, normal phallus Urology Results - Labs 10/16/17 07:04 10/16/17 07:04 Abnormal lab results RBC 3.66 M/mcL (4.19-5.50) L 10/16/17 07:04 Hgb 10.9 g/dL (12.9-16.9) L 10/16/17 07:04 Hct 32.9 % (37.5-50.1) L 10/16/17 07:04 VBG pCO2 40 mmHg (41-51) L 10/15/17 20:05 VBG pO2 85 mmHg (25-50) H 10/15/17 20:05 Chloride 112 mEq/L (98-107) H 10/16/17 07:04 Carbon Dioxide 22 mEq/L (23-29) L 10/16/17 07:04 BUN 43 mg/dL (8-23) H 10/16/17 07:04 Creatinine 2.37 mg/dL (0.70-1.30) H 10/16/17 07:04 Est GFR ( Amer) 32 (> 60) L 10/16/17 07:04 Est GFR (Non-Af Amer) 26 (> 60) L 10/16/17 07:04 Calculated Osmolality 302 (280-300) H 10/16/17 07:04 Calcium 8.4 mg/dL (8.6-10.3) L 10/16/17 07:04 AST 11 Units/L (13-39) L 10/15/17 18:23 Troponin I 0.09 ng/mL (< 0.04) H* 10/16/17 07:04 Albumin 3.3 g/dL (3.5-5.7) L 10/15/17 18:23 Albumin/Globulin Ratio 1.0 (1.1-2.2) L 10/15/17 18:23 Urine Clarity Cloudy (Clear) A 10/15/17 19: Urine Protein 100 mg/dL (Neg-Trace) H 10/15/17 19: Urine Blood Large (Negative) H 10/15/17 19: Ur Leukocyte Esterase Trace (Negative) H 10/15/17 19: Urine Microscopic RBC TNTC per hpf (0-3) H 10/15/17 19: Urine Microscopic WBC 5-15 per hpf (0-3) H 10/15/17 19: Ur Squamous Epith Cells Many per lpf (None-Few) H 10/15/17: Ur Culture Indicated? NO. (NO) A 10/15/17 19: Diabetes panel 10/16/17 Range/Units 07:04 Sodium 141 (136-145) mEq/L Potassium 4.7 (3.5-5.1) mEq/L Chloride 112 H (98-107) mEq/L Carbon Dioxide 22 L (23-29) mEq/L BUN 43 H (8-23) mg/dL Creatinine 2.37 H (0.70-1.30) mg/dL Glucose 89 (70-105) mg/dL Calcium 8.4 L (8.6-10.3) mg/dL Calcium panel 10/16/17 Range/Units 07:04 Calcium 8.4 L (8.6-10.3) mg/dL Pituitary panel 10/16/17 Range/Units 07:04 Sodium 141 (136-145) mEq/L Potassium 4.7 (3.5-5.1) mEq/L Chloride 112 H (98-107) mEq/L Carbon Dioxide 22 L (23-29) mEq/L BUN 43 H (8-23) mg/dL Creatinine 2.37 H (0.70-1.30) mg/dL Glucose 89 (70-105) mg/dL Calcium 8.4 L (8.6-10.3) mg/dL Adrenal panel 10/16/17 Range/Units 07:04 Sodium 141 (136-145) mEq/L Potassium 4.7 (3.5-5.1) mEq/L Chloride 112 H (98-107) mEq/L Carbon Dioxide 22 L (23-29) mEq/L BUN 43 H (8-23) mg/dL Creatinine 2.37 H (0.70-1.30) mg/dL Glucose 89 (70-105) mg/dL Calcium 8.4 L (8.6-10.3) mg/dL All other labs normal. - Imaging CT scan - abdomen: image reviewed CT scan - pelvis: image reviewed Consult Discharge Plan - Plan Referrals: Abraham Desai DO [Primary Care Provider] -
--- NOTE | 2017-10-16 17:10 | Electrocardiograph Report ---
[address] [place] [address] Test Date: 2017-10-16 Pat Name: [facility] Department: 115 Room: 3B37 Gender: M Maintenance Helper: : 1935 Requested By: Deisy Mejias Order Number: [id number] Reading MD: Kika Ramirez Measurements Intervals [place] Rate: 81 P: 66 ID: [id number] QRS: 7 QRSD: 91 T: 37 QT: 342 QTc: 379 Interpretive Statements SINUS RHYTHM LEFT ATRIAL ENLARGEMENT NONSPECIFIC ST ABNORMALITIES Electronically Signed On 10-16-2017 17:08:37 EDT by Kika Ramirez
--- NOTE | 2017-10-16 17:16 | Electrocardiograph Report ---
[address] [place] [address] Test Date: 2017-10-15 Pat Name: [facility] Luis Department: 103 Room: 3B37 Gender: M Utility Assembler: GARRETT : 1935 Requested By: Meli Freeman Order Number: [id number] Reading MD: Kika Ramirez Measurements Intervals [place] Rate: 107 P: 54 VT: 164 QRS: -26 QRSD: 76 T: 44 QT: 305 QTc: 368 Interpretive Statements SINUS TACHYCARDIA LEFT ATRIAL ENLARGEMENT [-0.15mV P WAVE IN V1/V2] INFERIOR MYOCARDIAL INFARCTION [40+ ms Q WAVE AND/OR ST/T ABNORMALITY IN II/aVF], OF INDETERMINATE AGE ANTEROSEPTAL MYOCARDIAL INFARCTION [40+ ms Q WAVE IN V1-V4], OF INDETERMINATE AGE Electronically Signed On 10-16-2017 17:14:36 EDT by Kika Ramirez
[2017-10-16] MEDS: traZODone 50 MG TABLET PO SCH (21:12)
[2017-10-16] MEDS: Ampicillin/Sulbactam 1,500 MG in 0.9 % Sodium Chloride Mini Bag 100 ML IVPB SCH (23:00)
[2017-10-17] MEDS: 0.9 % Sodium Chloride 1,000 ML IVC SCH (01:50)
[2017-10-17] MEDS: *HR* Heparin 5,000 UNIT/ML VIAL SQ SCH ×3 (06:00→22:12)
--- NOTE | 2017-10-17 07:19 | Urology Progress Note ---
Date of Encounter: 10/17/17 Time of Encounter: 07:16 - Assessment and Plan (1) BPH loc w urin obs/LUTS Current Visit: No Status: Resolved Assessment and plan: pt is unlikely to have a UTI bc no bacteria in UA. will follow culture to confirm. pt feels better today. appreciate hospitalists recs. consider cath removal as discharge pt states he was urinating well prior to admission. Progress Note Subjective: feels better Narrative: no pain. Objective Initial Vital Signs Temp Pulse Resp BP Pulse Ox 98.3 F 122 16 103/67 92 10/15/17 18:17 10/15/17 18:17 10/15/17 18:17 10/15/17 18:17 10/15/17 18:17 - General physical appearance Present: no distress - Additional Exam urine clear off any CBI - Labs 10/16/17 07:04 10/16/17 07:04 Diabetes panel 10/16/17 Range/Units 07:04 Sodium 141 (136-145) mEq/L Potassium 4.7 (3.5-5.1) mEq/L Chloride 112 H (98-107) mEq/L Carbon Dioxide 22 L (23-29) mEq/L BUN 43 H (8-23) mg/dL Creatinine 2.37 H (0.70-1.30) mg/dL Glucose 89 (70-105) mg/dL Calcium 8.4 L (8.6-10.3) mg/dL Calcium panel 10/16/17 Range/Units 07:04 Calcium 8.4 L (8.6-10.3) mg/dL Pituitary panel 10/16/17 Range/Units 07:04 Sodium 141 (136-145) mEq/L Potassium 4.7 (3.5-5.1) mEq/L Chloride 112 H (98-107) mEq/L Carbon Dioxide 22 L (23-29) mEq/L BUN 43 H (8-23) mg/dL Creatinine 2.37 H (0.70-1.30) mg/dL Glucose 89 (70-105) mg/dL Calcium 8.4 L (8.6-10.3) mg/dL Adrenal panel 10/16/17 Range/Units 07:04 Sodium 141 (136-145) mEq/L Potassium 4.7 (3.5-5.1) mEq/L Chloride 112 H (98-107) mEq/L Carbon Dioxide 22 L (23-29) mEq/L BUN 43 H (8-23) mg/dL Creatinine 2.37 H (0.70-1.30) mg/dL Glucose 89 (70-105) mg/dL Calcium 8.4 L (8.6-10.3) mg/dL Consult Discharge Plan - Plan Referrals: Abraham Desai DO [Primary Care Provider] -
[2017-10-17] MEDS: IPRATROPIUM BROMIDE NS SCH (09:30)
[2017-10-17] MEDS: Colchicine 0.6 MG TABLET PO SCH (09:37)
--- NOTE | 2017-10-17 20:09 | Internal Med Progress Note ---
Date of Encounter: 10/17/17 Time of Encounter: 11:15 - Assessment and plan (1) Pneumonia Current Visit: Yes Status: Acute Assessment and plan: Bedside swallow ordered and pending, attempting to rule out aspiration versus health care acquired pneumonia. Pneumonia urine antigen is positive. Pending on outcome of swallow evaluation will determine antibiotics. If aspiration will continue on current course, if hospital acquired, patient will start Augmentin po 10 day course. Continue telemetry Continue O2 as needed to maintain sats greater than 92% Continue duo nebs while awake. Qualifiers: Pneumonia type: aspiration pneumonia Aspiration pneumonia type: unspecified Laterality: bilateral Lung location: unspecified part of lung Qualified Code(s): J69.0 - Pneumonitis due to inhalation of food and vomit (2) CKD (chronic kidney disease) Current Visit: Yes Status: Resolved Assessment and plan: Chronic CKD stage III Appears to be a baseline. Monitor labs and vitals. Avoid nephrotoxins. Qualifiers: Chronic kidney disease stage: stage 3 (moderate) Qualified Code(s): N18.3 - Chronic kidney disease, stage 3 (moderate) (3) Status post prostatectomy Current Visit: Yes Status: Acute Assessment and plan: 7 days postprocedure. Urology is following. They are following urine culture, consider catheter removal at discharge since he states he was urinating well prior to admission. States patient is unlikely to have UTI due to no bacteria the UA. Continue to monitor labs and vitals. (4) Metabolic encephalopathy Current Visit: Yes Status: Acute Assessment and plan: Patient is alert, oriented to self only. Family states the patient appears to be back to baseline. Likely secondary to UTI, possible developing pneumonia. Urine and blood cultures were negative. Pt has no hypoxia. Patient shows multifocal pneumonia and bilateral lower lungs aspiration is likely, no acute abnormality in the abdomen or pelvis, prostatomegaly with Richter catheter placement and bladder decompression noted on CT chest Patient was examined by pulmonology, recommend chest physiotherapy 3 times daily with bronchodilators, deep breathing incentive spirometry. Bronchoscopy did not necessary at this time. Continue telemetry Continue to monitor patient for safety and falls Continue to monitor labs and vitals Continue chest physiotherapy 3 times daily, bronchodilators, and is spirometry (5) Troponin level elevated Current Visit: Yes Status: Acute Assessment and plan: Patient was flat, adynamic elevation of troponin in the setting of pneumonia and acute on chronic renal failure. She denies chest pain, he is in no distress. EKG showed no acute ST changes. Echocardiogram shows LVEF of 60-65%, mild LV DD, asymmetric moderate basal septal hypertrophy, mild to moderate MR, moderate AR, mild TR, trivial pericardial effusion and no evidence of tamponade. Considering patient has no EKG changes, no chest pain, we will hold off on cardiology consultation at this time. Continue telemetry Continue to monitor labs and vitals Trend troponin 1 (6) DVT prophylaxis Current Visit: Yes Status: Acute Assessment and plan: Heparin SQ q8h (7) Generalized weakness Current Visit: Yes Status: Acute Assessment and plan: Family reports that pt is deconditioned, states that he normally sits around at home and does not get any physical activity. PT/OT consulted and recommend SNF after disharge. SW consult in. (8) Sacral decubitus ulcer Current Visit: Yes Status: Acute Assessment and plan: Pt self reports wound to coccyx/sacrum "that I've had for a long time. " Pt is resistant to me looking at it and states that it is fine. Present prior to admission per pt. Wound care consulted. Monitor labs and vitals for signs of infection. Qualifiers: Pressure ulcer stage: unspecified pressure ulcer stage Qualified Code(s): L89.159 - Pressure ulcer of sacral region, unspecified stage - Time Spent With Patient Total time spent is greater than 50% in coordination of care (as documented) at patient's floor/unit and/or counseling patient: less than 15 minutes - Subjective Interval history: Patient was seen and assessed at 11:15 AM. 3 family members at bedside. Patient is alert, awake, oriented to self only, answers questions appropriately though he does not seemed to have short-term memory recall regarding date, year , president. Patient is pleasant, denies headache or blurred vision, no neck pain, no URI symptoms, no chest pain or shortness of breath, no abdominal pain, nausea, vomiting, diarrhea. Family has requested that patient have PT and OT evaluations since he is weak and lives alone. Patient also self reports skin breakdown on his bottom that he does not want anyone to look at it. - Constitutional Vitals: Temp Pulse Resp BP Pulse Ox 98.4 F 67 15 131/86 99 10/17/17 18:57 10/17/17 18:57 10/17/17 18:57 10/17/17 18:57 10/17/17 18:57 General appearance: Present: cachectic, cooperative, A&O X 1, pleasant, no acute distress, underweight. Absent: answers questions appropriately - Head Head exam: Present: atraumatic, normal inspection, normocephalic - Eye Eye exam: Present: normal appearance, conjuntiva pink, sclera anicteric - Neck Neck exam general surgery: Present: supple, trachea midline. Absent: lymphadenopathy, tenderness - Respiratory Respiratory exam: Present: CTAB. Absent: accessory muscle use, rales, rhonchi, wheezes - Cardiovascular Cardiovascular exam: Present: RRR, +S1, +S2. Absent: diastolic murmur, gallop, rubs, systolic murmur - GI/Abdominal GI/Abdominal exam: Present: normal bowel sounds, soft. Absent: distended, hepatomegaly, tenderness - Extremities Exam Extremities exam: Present: normal capillary refill, normal inspection, warm, radial pulses palpable and symmetrical. Absent: calf tenderness, cyanotic, pedal edema, tenderness - Neurological Exam Neurological exam: Present: alert, altered, no focal deficits. Absent: oriented X3, facial droop, speech deficit - Skin Skin exam: Present: dry, normal color, warm. Absent: intact, rash Additional comments: Patient self-reports either coccyx or sacral open wound that he reports this is the size of his thumb. He will not allow us to look at it. Internal Medicine: Result - Labs CBC & Chem 7: 10/16/17 07:04 10/16/17 07:04 - ABG Interpretation ABG results: PT/INR, D-dimer PT 11.6 Seconds (9.4-12.1) 10/15/17 18:23 - Impressions Impressions Echocardiogram 10/16/17 10:00 Impressions: LVEF 60-65%. Mild left ventricular diastolic dysfunction. Normal right ventricular structure and function. Asymmetric moderate basal septal hypertrophy. Systolic anterior motion (BEN) of the anterior leaflet of the mitral valve is noted. No significant LVOT gradient, PG 11 mmHg. Mild-moderate mitral regurgitation. Moderate aortic regurgitation. Mild tricuspid regurgitation. No pulmonary hypertension. There is a trivial pericardial effusion present along the inferior border of the RV. There is no echocardiographic evidence of tamponade. Left Ventricular Wall Motion: Rest Echo Findings All wall segments showed normal motion. Findings: Study Quality * Technically adequate exam. ECG Findings * Normal sinus rhythm. Left Ventricle * LVEF 60-65%. * Normal LV chamber size. * Asymmetric moderate basal septal hypertrophy. * Mild left ventricular diastolic dysfunction. Right Ventricle * Normal right ventricular structure and function. Left Atrium * Normal left atrial size. Right Atrium * Normal right atrial size. Mitral Valve * No mitral stenosis. * Systolic anterior motion (BEN) of the anterior leaflet of the mitral valve is noted. No significant LVOT gradient, PG 11 mmHg. * Mild mitral annular calcification * Mild-moderate mitral regurgitation. Aortic Valve * Trileaflet aortic valve. * Mildly thickened aortic valve leaflets. * No aortic stenosis. * Moderate aortic regurgitation. Tricuspid Valve * Normal tricuspid valve structure. * Mild tricuspid regurgitation. * Estimated RA pressure is 3 mmHg. * Estimated RVSP is 23 mmHg. * No pulmonary hypertension. Pulmonic Valve * Pulmonic valve is not well visualized. * No pulmonic stenosis. * No pulmonic regurgitation. Pulmonary Artery * Pulmonary artery not well visualized. Aorta * Normally sized aortic root. Pericardium * There is a trivial pericardial effusion present along the inferior border of the RV. * There is no echocardiographic evidence of tamponade. Interatrial Septum * No evidence of PFO by color Doppler. IVC * The IVC is not dilated. Consult Discharge Plan - Plan Referrals: Abraham Desai DO [Primary Care Provider] -
[2017-10-17] MEDS: traZODone 50 MG TABLET PO SCH (22:12)
[2017-10-17] MEDS: Ipratropium/Albuterol Neb 3 ML IH SCH (23:21)
[2017-10-17] MEDS: Ampicillin/Sulbactam 1,500 MG in 0.9 % Sodium Chloride Mini Bag 100 ML IVPB SCH (23:57)
[2017-10-18] MEDS: Ipratropium/Albuterol Neb 3 ML IH SCH ×6 (04:23→23:02)
[2017-10-18] MEDS: *HR* Heparin 5,000 UNIT/ML VIAL SQ SCH ×3 (05:58→21:15)
[2017-10-18 07:29] LABS: Basophils % 0.3 %; Eosinophils # 0.2 K/mcL (0.0-0.6); Eosinophils % 2.4 %; Hematocrit 35.4 % (37.5-50.1); Hemoglobin 11.5 g/dL (12.9-16.9); Immature Granulocytes % 0.4 % (0-4); Lymphocytes # 0.7 K/mcL (0.6-4.6); Mean Corpuscular HGB Conc 32.5 g/dL (31.6-35.5); Mean Corpuscular Hemoglobin 28.5 pg (28.0-33.3); Mean Corpuscular Volume 87.6 fL (83.0-100.0); Mean Platelet Volume 9.5 fL (9.4-12.4); Monocytes # 0.6 K/mcL (0.0-1.3); Monocytes % 9.1 %; Neutrophils # 5.2 K/mcL (1.6-8.9); Platelet Count 235 K/mcL (140-400); Red Blood Count 4.04 M/mcL (4.19-5.50); Red Cell Distribution Width 13.5 % (11.5-14.5); Segmented Neutrophils % 76.8 %
[2017-10-18 07:42] LABS: Calcium 8.8 mg/dL (8.6-10.3); Potassium 4.3 mEq/L (3.5-5.1)
[2017-10-18] MEDS: Colchicine 0.6 MG TABLET PO SCH (09:52)
[2017-10-18] MEDS: IPRATROPIUM BROMIDE NS SCH (09:53)
--- NOTE | 2017-10-18 14:56 | Internal Med Progress Note ---
Date of Encounter: 10/18/17 Time of Encounter: 12:30 - Assessment and plan (1) Generalized weakness Current Visit: Yes Status: Acute Assessment and plan: Family reports that pt is deconditioned, states that he normally sits around at home and does not get any physical activity. PT/OT consulted and recommend SNF after disharge. SW consult in. 10/18/2017-physical therapy and occupational therapy have recommended snf facility. The patient is agreeable after initial hesitation and bilingual patient support caseworker is working on getting referrals. (2) Pneumonia Current Visit: Yes Status: Acute Assessment and plan: Bedside swallow ordered and pending, attempting to rule out aspiration versus health care acquired pneumonia. Pneumonia urine antigen is positive. Pending on outcome of swallow evaluation will determine antibiotics. If aspiration will continue on current course, if hospital acquired, patient will start Augmentin po 10 day course. Continue telemetry Continue O2 as needed to maintain sats greater than 92% Continue duo nebs while awake. 10/18/2017-patient is urine strep pneumo antigen positive we will continue current antibiotic and switched to Augmentin as mentioned above Qualifiers: Pneumonia type: aspiration pneumonia Aspiration pneumonia type: unspecified Laterality: bilateral Lung location: unspecified part of lung Qualified Code(s): J69.0 - Pneumonitis due to inhalation of food and vomit (3) CKD (chronic kidney disease) Current Visit: Yes Status: Resolved Assessment and plan: Chronic CKD stage III Appears to be a baseline. Monitor labs and vitals. Avoid nephrotoxins. Qualifiers: Chronic kidney disease stage: stage 3 (moderate) Qualified Code(s): N18.3 - Chronic kidney disease, stage 3 (moderate) (4) Status post prostatectomy Current Visit: Yes Status: Acute Assessment and plan: 7 days postprocedure. Urology is following. They are following urine culture, consider catheter removal at discharge since he states he was urinating well prior to admission. States patient is unlikely to have UTI due to no bacteria the UA. Continue to monitor labs and vitals. (5) Metabolic encephalopathy Current Visit: Yes Status: Resolved Assessment and plan: Patient is alert, oriented to self only. Family states the patient appears to be back to baseline. Likely secondary to UTI, possible developing pneumonia. Urine and blood cultures were negative. Pt has no hypoxia. Patient shows multifocal pneumonia and bilateral lower lungs aspiration is likely, no acute abnormality in the abdomen or pelvis, prostatomegaly with Richter catheter placement and bladder decompression noted on CT chest Patient was examined by pulmonology, recommend chest physiotherapy 3 times daily with bronchodilators, deep breathing incentive spirometry. Bronchoscopy did not necessary at this time. Continue telemetry Continue to monitor patient for safety and falls Continue to monitor labs and vitals Continue chest physiotherapy 3 times daily, bronchodilators, and is spirometry 10/18/2017-metabolic encephalopathy seems to be improving. Per family he is at baseline now. He is very severely deconditioned and will need to be placed in a residential at this point. Plan for that is in progress (6) Troponin level elevated Current Visit: Yes Status: Acute Assessment and plan: Patient was flat, adynamic elevation of troponin in the setting of pneumonia and acute on chronic renal failure. She denies chest pain, he is in no distress. EKG showed no acute ST changes. Echocardiogram shows LVEF of 60-65%, mild LV DD, asymmetric moderate basal septal hypertrophy, mild to moderate MR, moderate AR, mild TR, trivial pericardial effusion and no evidence of tamponade. Considering patient has no EKG changes, no chest pain, we will hold off on cardiology consultation at this time. Continue telemetry Continue to monitor labs and vitals Trend troponin 1 (7) DVT prophylaxis Current Visit: Yes Status: Acute Assessment and plan: Heparin SQ q8h (8) Sacral decubitus ulcer Current Visit: Yes Status: Acute Assessment and plan: Pt self reports wound to coccyx/sacrum "that I've had for a long time. " Pt is resistant to me looking at it and states that it is fine. Present prior to admission per pt. Wound care consulted. Monitor labs and vitals for signs of infection. 10/18/2017-present since prior to arrival wound care on board. Continue current plan of care. Qualifiers: Pressure ulcer stage: unspecified pressure ulcer stage Qualified Code(s): L89.159 - Pressure ulcer of sacral region, unspecified stage - Time Spent With Patient Total time spent is greater than 50% in coordination of care (as documented) at patient's floor/unit and/or counseling patient: 25 - 35 minutes - Subjective Interval history: Patient denies any new shortness of breath, chest pain he appears comfortable at this point. - Constitutional Vitals: Temp Pulse Resp BP Pulse Ox 98.1 F 105 16 104/56 95 10/18/17 11:13 10/18/17 11:13 10/18/17 11:20 10/18/17 11:13 10/18/17 11:20 General appearance: Present: cachectic, cooperative, A&O X 1, pleasant, no acute distress, underweight. Absent: answers questions appropriately Exam: GENERAL: Alert, no distress, cooperative EYES: PERRLA, EOMI EARS: External ears normal, canals clear OROPHARYNX: Lips, mucosa, and tongue normal. Teeth and gums normal. Oropharynx normal. NECK: No jugulovenous distention, No carotid bruits, Carotid pulse normal contour, Supple LUNGS: Lungs clear to auscultation, Good diaphragmatic excursion CARDIAC: Normal S1 and S2; no rubs, murmurs, or gallops ABDOMEN: Abdomen soft, non-tender, BS normal, No masses or organomegaly EXTREMITIES: Extremities normal, no deformities, edema, clubbing or skin discoloration. Good capillary refill., No ulcers NEURO: Gait normal. Reflexes normal and symmetric. Sensation grossly intact, Cranial nerves II-XII intact PULSES: 2+ radial, 2+ carotid Rest of the exam is non contributory Internal Medicine: Result - Labs CBC & Chem 7: 10/18/17 06:13 10/18/17 06:13 Labs: Short CBC 10/18/17 Range/Units 06:13 WBC 6.7 (4.3-11.1) K/mcL Hgb 11.5 L (12.9-16.9) g/dL Hct 35.4 L (37.5-50.1) % Plt Count 235 (140-400) K/mcL Neutrophils # 5.2 (1.6-8.9) K/mcL BMP 10/18/17 06:13 Sodium 142 Potassium 4.3 Chloride 111 H Carbon Dioxide 21 L BUN 32 H Creatinine 2.08 H Glucose 88 Calcium 8.8 - ABG Interpretation ABG results: PT/INR, D-dimer PT 11.6 Seconds (9.4-12.1) 10/15/17 18:23 Consult Discharge Plan - Plan Referrals: Abraham Desai DO [Primary Care Provider] -
[2017-10-18] MEDS: traZODone 50 MG TABLET PO SCH (21:12)
[2017-10-18] MEDS: Ampicillin/Sulbactam 1,500 MG in 0.9 % Sodium Chloride Mini Bag 100 ML IVPB SCH (23:04)
[2017-10-19] MEDS: Ipratropium/Albuterol Neb 3 ML IH SCH ×3 (03:52→11:29)
[2017-10-19] MEDS: *HR* Heparin 5,000 UNIT/ML VIAL SQ SCH (05:54)
[2017-10-19] MEDS: Colchicine 0.6 MG TABLET PO SCH (08:35)
[2017-10-19] MEDS: IPRATROPIUM BROMIDE NS SCH (08:36)
[2017-10-19] MEDS ORDERED: Neosporin OINT 1 APPL PACKET TP ONE (11:35)
[2017-10-19 12:30] VITALS: BP 110/67
--- NOTE | 2017-10-19 12:37 | Physician Discharge Referral ---
ExtendedCare Referral Info Transfer To: SNF Provider in Charge after Transfer: PCP - Diagnosis (1) Pneumonia Priority: Primary Status: Acute (2) Generalized weakness Priority: Secondary Status: Acute (3) CKD (chronic kidney disease) Priority: Secondary Status: Resolved (4) Status post prostatectomy Priority: Secondary Status: Acute (5) Metabolic encephalopathy Priority: Secondary Status: Resolved (6) Troponin level elevated Priority: Secondary Status: Acute (7) DVT prophylaxis Status: Acute (8) Sacral decubitus ulcer Status: Acute - Transfer Medications Prescriptions: Amoxicillin/Clavulanate [Augmentin] 500 mg PO BIDWM 4 Days #8 tablet Home Medications: Buspirone HCl [Buspar] 10 mg PO BID 10/10/17 [History] Colchicine [Colcrys] 0.6 mg PO DAILY 10/10/17 [History] Donepezil [Aricept] 5 mg PO HS 10/10/17 [History] Ipratropium [place] 2 spr NS DAILY 10/10/17 [History] Omeprazole [PriLOSEC] 20 mg PO DAILY 10/10/17 [History] Theophylline Anhydrous [Rodrigo-24] 200 mg PO BID 10/10/17 [History] Trazodone HCl 50 mg PO HS 10/10/17 [History] HYDROcodone/Acet 5/325 mg [[place] 5-325 mg] 1 tab PO Q4HR PRN 5 Days #10 tablet 10/11/17 [Rx] Amoxicillin/Clavulanate [Augmentin] 500 mg PO BIDWM 4 Days #8 tablet 10/19/17 [ Rx] Ipratropium/Albuterol Neb [Duoneb] 3 ml IH [id number] inhsol 10/19/17 [Rx] Allergies/Adverse Reactions: 3 Allergy/AdvReac Type Severity Reaction Status Date / Time theophylline AdvReac See Verified 10/10/17 08:39 Comments - Respiratory Orders Smoking Cessation: Smoking cessation has been advised. For more information, call the [facility] [employer] [facility]uit Line at 7-179-EJIK-NOW. - Rehabiliation Orders Rehab Orders: Evaluation for Physical Therapy, Evaluation for Occupational Therapy - Treatments Skin tear care topically daily PRN per policy List/Other: Patient has sacral decubitus which is not new to this visit. Please play close attention to offloading and wound care while at the facility. CERTIFICATION: I certify that the transfer of the above named patient to an Extended Care Facility is necessary for the continuing treatment of the diagnosis listed. The above information is true and accurate reflection of patient's current condition. Confidential - Redisclosure prohibited without a patient's written consent.
--- NOTE | 2017-10-19 12:41 | Discharge Summary ---
- NOTES TO OUTPATIENT PROVIDER Notes to Outpatient Provider: Patient has been diagnosed with comminuted acquired pneumonia. He was also positive for strep pneumo antigen in the urine he did initially he was on IV antibiotics but has been switched to oral antibiotics to complete 5 more days of total antibiotics course. He also recently had a history of prostatic surgery and will leave with a Richter catheter and follow-up urology as an outpatient. Orders not resulted at time of discharge: Pending orders 10/16/17 06:45 Culture,Sputum with Gram Stain [RM] Routine Date of Encounter: 10/19/17 Time of Encounter: 12:38 - Discharge Diagnosis (1) Pneumonia Priority: Primary Status: Acute Qualifiers: Pneumonia type: aspiration pneumonia Aspiration pneumonia type: unspecified Laterality: bilateral Lung location: unspecified part of lung Qualified Code(s): J69.0 - Pneumonitis due to inhalation of food and vomit (2) Generalized weakness Priority: Secondary Status: Acute (3) CKD (chronic kidney disease) Priority: Secondary Status: Resolved Qualifiers: Chronic kidney disease stage: stage 3 (moderate) Qualified Code(s): N18.3 - Chronic kidney disease, stage 3 (moderate) (4) Status post prostatectomy Priority: Secondary Status: Acute (5) Metabolic encephalopathy Priority: Secondary Status: Resolved (6) Troponin level elevated Priority: Secondary Status: Acute (7) DVT prophylaxis Priority: Secondary Status: Acute (8) Sacral decubitus ulcer Priority: Secondary Status: Acute Qualifiers: Pressure ulcer stage: unspecified pressure ulcer stage Qualified Code(s): L89.159 - Pressure ulcer of sacral region, unspecified stage (9) Severe protein-calorie malnutrition Priority: Secondary Status: Acute Assessment and Plan: Patient has been diagnosed with severe protein calorie malnutrition. Nutrition has been consulted and recommend adding supplements to the diet. Hospital course: Mr. Smith is a 82 year old male who recently underwent a prostate surgery in May who presented with altered mental status and metabolic encephalopathy. He was diagnosed with community acquired pneumonia and strep pneumo antigen was positive in the urine . He was initially placed on IV antibiotics. Cultures have been negative in the hospital and he will be transitioned to oral antibiotics to complete a total course of at least 7 days duration. Urology was also consulted and he will leave with a Richter catheter in place and follow up with urology within 1 week duration. He is also significantly deconditioned and we will be discharging him to a nursing home facility at this point. Discharge discussed with: patient, nurse - Time Spent with Patient Total time spent providing and/or coordinating discharge services: Greater than 30 minutes - Discharge Medications Prescriptions: Amoxicillin/Clavulanate [Augmentin] 500 mg PO BIDWM 4 Days #8 tablet Home Medications: Buspirone HCl [Buspar] 10 mg PO BID 10/10/17 [History] Colchicine [Colcrys] 0.6 mg PO DAILY 10/10/17 [History] Donepezil [Aricept] 5 mg PO HS 10/10/17 [History] Ipratropium [place] 2 spr NS DAILY 10/10/17 [History] Omeprazole [PriLOSEC] 20 mg PO DAILY 10/10/17 [History] Theophylline Anhydrous [Rodrigo-24] 200 mg PO BID 10/10/17 [History] Trazodone HCl 50 mg PO HS 10/10/17 [History] HYDROcodone/Acet 5/325 mg [[place] 5-325 mg] 1 tab PO Q4HR PRN 5 Days #10 tablet 10/11/17 [Rx] Amoxicillin/Clavulanate [Augmentin] 500 mg PO BIDWM 4 Days #8 tablet 10/19/17 [ Rx] Ipratropium/Albuterol Neb [Duoneb] 3 ml IH [id number] inhsol 10/19/17 [Rx] Allergies/Adverse Reactions: 3 Allergy/AdvReac Type Severity Reaction Status Date / Time theophylline AdvReac See Verified 10/10/17 08:39 Comments Date of admission: 10/15/17 22:45 Primary care physician: Abraham Desai, Consults: 10/15/17 23:20 Consult to Nutrition [CONS] Routine Comment: Consulting Provider: NUTRITION Reason for Dietary Consult: MST Score Consult to [employer] [CONS] Routine Reason for SW Consult: From home alone, no services in place at this time. 10/16/17 00:26 Consult to Pulmonology [CONS] Routine Consulting Provider: [facility] Reason for Consult: mucus plugs Call Completed: No 10/16/17 09:32 Consult to Urology [CONS] Routine Consulting Provider: [facility] [place] Reason for Consult: S/P PROSTATECTOMY Call Completed: Yes 10/16/17 10:02 Consult to Occupational Therapy [CONS] Routine Comment: Evaluate, develop and implement POC Reason for Consult: DISCHARGE PLANNING, WEAKNESS Does patient have active BEDREST order?: No Is patient medically & hemodynamically stable?: Yes Consult to Physical Therapy [CONS] Routine Comment: Evaluate, develop and implement POC Reason for Consult: DISCHARGE PLANNING, WEAKNESS Does patient have active BEDREST order?: No Is patient medically & hemodynamically stable?: Yes 10/17/17 20:30 Consult to Wound Care [CONS] Routine Reason for Consult: Pt reports wound to coccyx/sacrum that "I have had for a long time." Pt admits to sedentary lifestyle. Per pt wound was present prior to admission. Time Notified: 20:31 Call Completed: No - Constitutional Vitals: Temp Pulse Resp BP Pulse Ox 97.9 F 83 18 110/67 96 10/19/17 12:29 10/19/17 12:29 10/19/17 12:29 10/19/17 12:29 10/19/17 12:29 General appearance: Present: cachectic, cooperative, A&O X 1, pleasant, no acute distress, underweight. Absent: answers questions appropriately Exam: GENERAL: Alert, cachectic no distress, cooperative EYES: PERRLA, EOMI EARS: External ears normal, canals clear OROPHARYNX: Lips, mucosa, and tongue normal. Teeth and gums normal. Oropharynx normal. NECK: No jugulovenous distention, No carotid bruits, Carotid pulse normal contour, Supple LUNGS: Lungs clear to auscultation, Good diaphragmatic excursion CARDIAC: Normal S1 and S2; no rubs, murmurs, or gallops ABDOMEN: Abdomen soft, non-tender, BS normal, No masses or organomegaly EXTREMITIES: Extremities normal, no deformities, edema, clubbing or skin discoloration. Good capillary refill., No ulcers NEURO: Gait normal. Reflexes normal and symmetric. Sensation grossly intact, Cranial nerves II-XII intact PULSES: 2+ radial, 2+ carotid Rest of the exam is non contributory - Patient Status Disposition: Transfer SNF Condition: Fair Functional capacity at discharge: uses cane/walker Overall status at discharge: patient is progressing back to baseline - Discharge Instructions Follow Up With: Abraham Desai DO [Primary Care Provider] - - Diet and Activity Activity: resume usual activities as tolerated Diet: advance to your usual diet
== END 2017-10-19 14:18 | DRG 177 ==
LOC: 3NENU 18:16 → EMEROO 18:16 → SUATTDRO 22:45 → 3NENU 22:51 → 3BNU 10-16 11:24
PROVIDERS: ADMIT Internal Medicine; ATTEND Internal Medicine